=== PATIENT | male | born 1970 | race Caucasian/White ===

== ENCOUNTER → 2021-02-24 | Outpatient (CLI) | payer OTHER | LOC: HEART CORB 08:00 | DX: R07.2 Precordial pain (principal); I10 Essential (primary) hypertension; R55 Syncope and collapse; R06.02 Shortness of breath; E78.5 Hyperlipidemia, unspecified; E11.9 Type 2 diabetes mellitus without complications; J44.9 Chronic obstructive pulmonary disease, unspecified; R93.1 Abnormal findings on diagnostic imaging of heart and coronary circulation | CPT/HCPCS: 78452; 93306; A9502; J2785 ==